=== PATIENT | male | born 1940 | race Caucasian/White ===

== ENCOUNTER → 2016-10-26 | Day surgery (SDC) | payer MEDICARE ==
[~2016-10-26] VITALS: Ht 175.3 cm; Wt 87.7 kg
[~2016-10-26] MED LIST: ACETAMINOPHEN 500 MG CPLT PO PRN; AMLO5TAB2 PO; ASPI1TAB69 PO; ATROPINE SULFATE 1% OPHT SOLN 2 ML BTL ONE; BALANCED SALT SOLN OPHT IRRIG 15 ML BTL ONE; CARV3.12 PO; CHLORHEXIDINE GLUCONATE 2 % 1 PACK (2 CLOTHS) TOPICAL PRN; DEXAMETHASONE SOD PHOS 20 MG/5 ML VIAL ONE; DO NOT ADM ANY ANTICOAGULANT DRUGS PRN; EPINEPHrine HCL (1:1000) 1 MG/ML VIAL ONE; FAMOTIDINE 20 MG/2 ML VIAL ONE; INSULIN HUMAN REGULAR 1,000 UNITS/10 ML VIAL SQ PRN; LACTATED RINGER'S 1000 ML INJ 1,000 ML IV ONE; LACTATED RINGER'S 1000 ML IV PRN; METOPROLOL TARTRATE 25 MG TAB PO PRN; MIDAZOLAM HCL 2 MG/2 ML VIAL ONE; MULT400T PO; ONDANSETRON HCL 4 MG/2 ML VIAL IM PRN; POVIDONE IODINE 5% (ANTISEPSIS KIT) 4 APPLICATIONS EACH NARE PRN; PROPOFOL 200 MG/20 ML AMP IV ONE; SODIUM CHLORID 0.9% 500 ML IV PRN; STERILE WATER FOR INJ 20 ML VIAL ONE; TOBRAMYCIN 0.3%/DEXAMETHASONE 0.1% OPHT SUSP 5 ML BTL ONE; TOBRAMYCIN/DEXAMETHASONE OPTH OINT 3.5 GM TUBE ONE; TRIAMCINOLONE ACETONIDE/PF 40 MG/ML OPTH VIAL ONE; ceFAZolin INJ 1,000 MG VIAL ONE; ePHEDrine/NS 25 MG/5 ML SYR IV ONE; oxyCODONE/ACETAMINOPHEN 5 MG/325 MG TAB PO PRN
[2016-10-26 07:37] VITALS: BP 160/89; PULSE 64; RESP 20; TEMP 97.6; O2SAT 98
[2016-10-26 07:40] LABS: AUTOMATED NEUTROPHIL # 7.5 TH/MM3 (1.8-7.7); BASOPHIL % 0.5 % (0.0-2.0); EOSINOPHIL # 0.1 TH/MM3 (0-0.4); EOSINOPHIL % 0.8 % (0.0-4.0); HEMATOCRIT 44.1 % (39.0-51.0); HEMO FLAGS DIFF FINAL; LYMPH % 11.3 % (9.0-44.0); LYMPHOCYTE # 1.1 TH/MM3 (1.0-4.8); MEAN CELL VOLUME 87.9 FL (80.0-100.0); MEAN CORPUSCULAR HEMOGLOBIN 30.3 PG (27.0-34.0); MEAN CORPUSCULAR HGB CONC 34.5 % (32.0-36.0); MONO % 8.3 % (0.0-8.0); NEUT % 79.1 % (16.0-70.0); PLATELET COUNT 191 TH/MM3 (150-450); RED BLOOD COUNT 5.02 MIL/MM3 (4.50-5.90); WHITE BLOOD COUNT 9.5 TH/MM3 (4.0-11.0)
[2016-10-26] MEDS: TROPICAMIDE 1% OPTH SOLN 2 ML BTL LEFT EYE SCH ×3 (08:20→08:50)
[2016-10-26] MEDS: CYCLOPENTOLATE HCL 1% OPHT SOLN 2 ML BTL LEFT EYE SCH ×3 (08:20→08:50)
[2016-10-26] MEDS: PHENYLEPHRINE HCL 2.5% OPTH SOLN 2 ML BTL LEFT EYE SCH ×3 (08:20→08:50)
[2016-10-26] MEDS: ATROPINE SULFATE 1% OPHT SOLN 5 ML BTL LEFT EYE SCH ×2 (08:35→08:50)
--- NOTE | 2016-10-26 12:22 | EKG ---
Date Performed: 10/26/2016 Time Performed: 07:36:41 PTAGE: 76 years EKG: SINUS BRADYCARDIA WITH FIRST DEGREE AV BLOCK MINIMAL VOLTAGE CRITERIA FOR LVH, CONSIDER NOR MAL VARIANT NONSPECIFIC ST & T-WAVE ABNORMALITY ABNORMAL ECG NO PREVIOUS TRACING DOCTOR: Stephan Andrea Interpretating Date/Time 10/26/2016 12:19:57
[2016-10-26 12:50] VITALS: BP 129/69; PULSE 54; RESP 18; TEMP 97.7; O2SAT 97
--- NOTE | 2016-10-29 17:52 | MP ---
cc: STONE BEST M.D. DATE OF SURGERY: 10/29/2016. PREOPERATIVE DIAGNOSIS: Rhegmatogenous retinal detachment, left eye. POSTOPERATIVE DIAGNOSIS: Rhegmatogenous retinal detachment, left eye. OPERATIVE PROCEDURE PERFORMED: Trans pars plana vitrectomy, internal drainage of subretinal fluid, endolaser photocoagulation, gas fluid exchange, left eye. SURGEON: Stone Best MD. ANESTHESIA: General endotracheal anesthesia. INDICATIONS FOR THE PROCEDURE: Mr. Johnson is a 76-year-old gentleman who was found by chance on a routine exam to have a temporal retinal detachment in his left eye. Since he was unaware of the symptoms until that exam we are unsure how long this detachment was present. This detachment went from approximately two to five o'clock and was threatening to jump the macula from the temporal side. The need for surgery was discussed with the patient and the risks and benefits of vitrectomy were discussed. He wished to proceed. Informed consent was obtained. No guarantee was made as to visual outcome. DESCRIPTION OF THE PROCEDURE IN DETAIL: He was brought to [facility] Operating Room #1 and placed on the operating table. Appropriate anesthesia monitoring devices were applied. He was placed under general anesthesia using an endotracheal tube. The left eye was identified as the operative site and prepped and draped in the usual sterile fashion. A lid speculum was placed. The microscope was brought around and adjusted. At this point, an appropriate time-out was called with the surgical team agreeing to the procedure and surgical site. Using the Kadeem 23-gauge vitrectomy system, the trocar cannulas were placed 3.5 mm posterior to the limbus after first displacing the conjunctiva. The first one was placed at approximately 3:30 o'clock and verified to be in the posterior chamber. An infusion cannula was attached to it and turned on. Two additional trocar cannulas were placed at about 10 and 2 o'clock. The eye was then entered with the Endoilluminator light pipe and vitrectomy cutter and using the BIOME wide angle viewing system, a vitrectomy was carried out. Scleral depression was used to remove the peripheral vitreous to the vitreous base. Once the vitrectomy was completed, Perfluoron liquid was instilled into the posterior chamber to flatten the retina. Once the retina was flattened, endolaser photocoagulation as well as some laser indirect photocoagulation was delivered around the periphery. A total of 1627 laser spots were delivered with the power being 250 milliwatts and 0.1-second exposure when using the endolaser probe and 400 milliwatts and 0.15-second exposure when using the indirect delivery system. The Perfluoron was then exchanged out using the soft tipped linear extrusion needle for air and then a 10% mixture of C3F8 gas was slowly insufflated through the eye to replace the air. Plugs were placed back in the cannulas and then they were removed one by one with tamponade of the site with a cotton swab leaving the eye with good pressure and no visible air leaks. Diathermy was applied to the conjunctival wounds over the sclerotomies. Atropine drops were placed on the cornea followed by subconjunctival injections of Ancef 125 mg in 0.5 cc and Decadron 2 mg in 0.5 cc. The lid speculum was removed and the patient was undraped. TobraDex ointment was placed on the cornea and the left eye was patched and shielded. The patient had the endotracheal tube removed in the room and was returned to recovery in good condition lying on his right side. He will be asked to alternate between lying on his right side and face down overnight and will be seen in the office in the morning. MD DAX Coleman/TABATHA /11:20 AM /5:44 PM
== END | disposition home or self-care (01) ==
LOC: HSDC 06:49
PROVIDERS: ATTEND Ophthalmology
DX: H33.002 Unspecified retinal detachment with retinal break, left eye (principal); I44.0 Atrioventricular block, first degree
CPT/HCPCS: 00145; 67108; 85025; 93005; J0171; J0690; J1100; J2250; J3010; J7120; J3300